=== PATIENT | male | born 1970 | race Caucasian/White ===

== ENCOUNTER 2024-04-27 16:57 | Emergency (ER) | payer SELFPAY ==
[2024-04-27 17:01] VITALS: BP 133/81
[2024-04-27 18:00] VITALS: BP 126/88
[2024-04-27 18:17] LABS: Carboxyhemoglobin 2.4 %
[2024-04-27 18:39] LABS: C-Reactive Protein < 5.00 mg/L (0.0-10.00)
--- NOTE | 2024-04-27 18:45 | ED.GENMED ---
History of Present Illness
General
Chief Complaint: Exposure-Chemical
Time Seen by Provider: 04/27/24 17:19
History of Present Illness
History of Present Illness:
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 He states he had brief episode of dizziness and
headache and feels as though his voice is hoarse, now feels improved. No chest pain or shortness of breath
Review of Systems
Review of Systems
Allergies reviewed?: Yes
All Other Systems: ROS reviewed and negative except as documented in HPI and ROS
Phy Exam
Physical Exam
Physical Exam:
GEN: Well appearing, NAD, WDWN
HEENT: Oral mucosa moist, no scleral icterus, no nasal congestion, oropharynx pink and moist with no erythema
Cardiac: Regular rate
Lung: No respiratory distress, no tachypnea
MSK: No gross deformity or injuries
Skin: Good color, no pallor or jaundice, no rashes
Neuro: AO x3; CN II-XII grossly intact. BUE strength 5/5 in all mishra, sensation intact and symmetric. BLE strength 5/5 in all mishra, sensation intact and symmetric
Psych: Calm, cooperative
Course
Orders/Labs/Results
Orders:
Orders
04/27/24 17:39
Miscellaneous Order As Directed
Miscellaneous order: serum cholinesterase
04/27/24 18:02
Add On- LAB Urgent
Tests Added?: serum cholinesterase
04/27/24 18:04
CRP [C-Reactive Protein] Urgent
Carboxyhemoglobin Urgent
Vital Signs
Initial and Last Documented VS:
Initial Vital Signs
Temp Pulse Resp BP Pulse Ox
97.7 F 78 16 133/81 99
04/27/24 17:01 04/27/24 17:01 04/27/24 17:01 04/27/24 17:01 04/27/24 17:01
Last Documented Vital Signs
Temp Pulse Resp BP Pulse Ox
97.7 F 64 15 126/88 98
04/27/24 17:01 04/27/24 18:45 04/27/24 18:45 04/27/24 18:00 04/27/24 18:45
MDM/Problems Addressed
MDM/Problems Addressed:
Patient is minimally symptomatic, carboxyhemoglobin is reassuring. Patient arrives with paperwork provided by his employer suggesting the use of serum cholinesterase levels as a low level may indicate an acute exposure to this hydrocarbon, although
this provides no acute clinical benefit will send this for purposes of follow-up should patient experience any long-term toxic effects of his work exposure
*Critical Care Note
Total Time (30-74mins, 75-104mins- exclusive of procedures): Not Applicable
ED Attending Note
-
Portions of this chart may have been created with voice recognition software.� Occasional wrong word or��sound alike� substitutions may have occurred due to the inherent limitations of voice recognition software.
Discharge Plan
Departure
Patient Disposition: Home (Routine Discharge)
Date of Disposition: 04/27/24
Time of Disposition: 18:45
Patient with high blood pressure during this ER visit?: No
Discharge Problem:
Accidental hydrocarbon ingestion
Instructions: Chemical Ingestion (DC)
Interventions
Interventions:
*Risk Screen - Suicide Last Done: 04/27/24 17:02
*Neglect/Abuse Screening Last Done: 04/27/24 18:05
*Nursing Disposition Last Done: 04/27/24 19:16
ED-EENT Assessment Last Done: 04/27/24 18:05
ED- Pulmonary Assessment Last Done: 04/27/24 18:05
ED-Skin Assessment Last Done: 04/27/24 18:05
Discharge Date and Time
Discharge Date/Time: 04/27/24 19:18
Print Language: ARMENIAN
== END 2024-04-27 19:18 | disposition home or self-care (01) ==
LOC: EMR 16:57
PROVIDERS: Physician Assistant; EMERGENCY PHYSICIAN Emergency Medicine; FAMILY PHYSICIAN Internal Medicine
DX: T59.891A Toxic effect of other specified gases, fumes and vapors, accidental (unintentional), initial encounter (principal); R42 Dizziness and giddiness; Y99.0 Civilian activity done for income or pay
CPT/HCPCS: 82375; 86140; 99283